=== PATIENT | female | born 1980 ===

== ENCOUNTER 2024-08-31 11:41 | Emergency (ER) | payer OTHER ==
[2024-08-31] MEDS: Amoxicillin/Clavulanate K 875-125 MG Tab PO ONE (13:06)
== END 2024-08-31 14:23 | disposition home or self-care (01) ==
LOC: JD.ED 11:41
DX: K64.4 Residual hemorrhoidal skin tags (principal); K61.1 Rectal abscess; K59.00 Constipation, unspecified; Z88.2 Allergy status to sulfonamides; Z79.899 Other long term (current) drug therapy; Z86.16 Personal history of COVID-19
CPT/HCPCS: 99283; A9270-GY